=== PATIENT | female | born 1970 | race Two or more races ===

== ENCOUNTER 2020-06-27 10:04 | Outpatient (CLI) | payer OTHER | END 2020-06-27 10:15 | disposition home or self-care (01) | LOC: SONOGRAMA 10:04 → MAMO-SONO 10:04 | PROVIDERS: ATTEND Student in an Organized Health Care Education/Training Program | DX: N60.11 Diffuse cystic mastopathy of right breast (principal); N60.12 Diffuse cystic mastopathy of left breast ==

== ENCOUNTER 2023-04-16 09:31 | Outpatient (CLI) | payer OTHER | END 2023-04-16 09:40 | disposition home or self-care (01) | LOC: TOM 09:31 | PROVIDERS: ATTEND Internal Medicine Cardiovascular Disease | DX: C45.9 Mesothelioma, unspecified (principal) ==